=== PATIENT | female | born 1970 | race Caucasian/White ===

== ENCOUNTER 2017-03-28 10:25 | Emergency (ER) | payer MEDICARE, BC ==
--- NOTE | 2017-03-28 10:34 | EDM.PDOC ---
ED HPI GENERAL MEDICAL PROBLEM - General Chief Complaint: Respiratory Problem Stated Complaint: COLD,COUGH AND FEVER Time Seen by Provider: 03/28/17 10:33 Source of Information: Reports: Patient History Limitations: Reports: No Limitations - History of Present Illness INITIAL COMMENTS - FREE TEXT/NARRATIVE: HISTORY AND PHYSICAL: []46-year-old female presents with chest tightness coughing and shortness of breath History of Present Illness: []Patient has been ill for the last 2-3 days has not had her flu vaccine Coughing has been nonproductive denies fevers and chills Complaints of hearing a "crackling"at the end of a breath. Review of Systems: As per history of present illness and below otherwise all systems reviewed and negative. Past medical history: As per history of present illness and as reviewed below otherwise noncontributory. Surgical history: As per history of present illness and as reviewed below otherwise noncontributory. Social history: No reported history of drug or alcohol abuse. Family history: As per history of present illness and as reviewed below otherwise noncontributory. Physical exam: Alert and oriented female answering questions appropriately speaking in full sentences without any shortness of breath. HEENT: Atraumatic, normocehpalic, pupils reactive, negative for conjunctival pallor or scleral icterus, mucous membranes moist, throat clear, neck supple, nontender, trachea midline. Lungs: Clear to auscultation, breath sounds equal bilaterally, chest non tender. Heart: S1S2, regular, negative for clicks, rubs, or JVD. Abdomen: Soft, nondistended, nontender. Negative for masses or hepatossplenmegaly. Negative for costovertebral tenderness. Pelvis: Stable nontender. Genitourinary: Deferred. Rectal: Deferred Extremities: Atraumatic, negative for cords or calf pain. Neurovascular unremarkable. Neuro: Awake, alert, oriented. Cranial nerves II through XII unremarkable. Cerebellum unremarkable. Motor and sensory unremarkable throughout. Exam nonfocal. Have discussed the negative results on the influenza and chest x-ray with the client and her Have recommended prednisone and Tessalon Perles to improve her cough and inflammation to the bronchials. She did verbalize understanding of the test results and recommendations. Diagnostics: [cbc, cmp influenza, CXR] Therapeutics: [] Impression: [Bronchiolitis] Plan: [Discharged to home Prednisone Tessalon Perles Follow-up with your primary care next week Return to emergency room over the weekend if your symptoms worsen ] Definitive disposition and diagnosis as appropriate pending reevaluation and review of above. Onset: Gradual Duration: Day(s): (3), Getting Worse Location: Reports: Chest Quality: Reports: Ache Severity: Moderate Improves with: Reports: None Worsens with: Reports: None Associated Symptoms: Reports: Cough chest Pain Score (Numeric/FACES): 4 - Related Data Allergies Allergy/AdvReac Type Severity Reaction Status Date / Time clindamycin [From Cleocin] Allergy Hives Verified 03/28/17 10:35 Penicillins Allergy Hives Verified 03/28/17 10:35 Home Meds: Home Meds ALPRAZolam [Alprazolam] 1 tab PO TID PRN 03/28/17 [History] Benzonatate [Tessalon Perle] 100 mg PO QID PRN #40 capsule 03/28/17 [Rx] Prednisone [IMW: predniSONE] 20 mg PO WITHBREAKFAST #5 tab 03/28/17 [Rx] Sertraline [Zoloft] 50 mg PO DAILY 03/28/17 [History] Zolpidem [Ambien] 10 mg PO DAILY PRN 03/28/17 [History] ED ROS GENERAL - Review of Systems Review Of Systems: ROS reveals no pertinent complaints other than HPI. ED EXAM, GENERAL - Physical Exam Exam: See Below (see dictation) Course - Vital Signs Last Recorded V/S: Last Vital Signs Temp 36.4 C 03/28/17 10:32 Pulse 78 03/28/17 10:32 Resp 20 03/28/17 10:32 BP 129/68 03/28/17 10:32 Pulse Ox 95 03/28/17 10:32 - Orders/Labs/Meds Orders: Active Orders 24 hr Category Date Time Status Chest 2V [CR] Stat Exams 03/28/17 10:37 Taken UA W/MICROSCOPIC [URIN] Stat Lab 03/28/17 10:37 Uncollected Sodium Chloride 0.9% [Saline Flush] Med 03/28/17 10:37 Active 10 ml FLUSH ASDIRECTED PRN Sodium Chloride 0.9% [Saline Flush] Med 03/28/17 10:37 Active 2.5 ml FLUSH ASDIRECTED PRN Saline Lock Insert [OM.PC] Stat [facility] 03/28/17 10:37 Ordered Medication Orders Sodium Chloride (Saline Flush) 10 ml FLUSH ASDIRECTED PRN PRN Reason: Keep Vein Open Sodium Chloride (Saline Flush) 2.5 ml FLUSH ASDIRECTED PRN PRN Reason: Keep Vein Open Labs: Laboratory Tests 03/28/17 03/28/17 Range/Units 10:47 10:47 WBC 5.51 (4.0-11.0) K/uL RBC 4.53 (4.30-5.90) M/uL Hgb 12.3 (12.0-16.0) g/dL Hct 36.9 (36.0-46.0) % MCV 81.5 (80.0-98.0) fL MCH 27.2 (27.0-32.0) pg MCHC 33.3 (31.0-37.0) g/dL RDW Std Deviation 45.6 (28.0-62.0) fl RDW Coeff of Ruben 16 H (11.0-15.0) % Plt Count 317 (150-400) K/uL MPV 9.60 (7.40-12.00) fL Neut % (Auto) 63.6 (48.0-80.0) % Lymph % (Auto) 21.6 (16.0-40.0) % [place] % (Auto) 13.4 (0.0-15.0) % Eos % (Auto) 0.9 (0.0-7.0) % Baso % (Auto) 0.5 (0.0-1.5) % Neut # (Auto) 3.5 (1.4-5.7) K/uL Lymph # (Auto) 1.2 (0.6-2.4) K/uL [place] # (Auto) 0.7 (0.0-0.8) K/uL Eos # (Auto) 0.1 (0.0-0.7) K/uL Baso # (Auto) 0.0 (0.0-0.1) K/uL Nucleated RBC % 0.0 /100WBC Nucleated RBCs # 0 K/uL Sodium 138 (136-146) mmol/L Potassium 4.0 (3.5-5.1) mmol/L Chloride 109 (98-110) mmol/L Carbon Dioxide 19 L (21-31) mmol/L BUN 5 L (6.0-23.0) mg/dL Creatinine 0.6 (0.6-1.5) mg/dL Est Cr Clr Drug Dosing 87.47 mL/min Estimated GFR (MDRD) > 60.0 ml/min Glucose 88 (60-110) mg/dL Calcium 9.3 (8.8-10.8) mg/dL Total Bilirubin 0.3 (0.1-1.5) mg/dL AST 18 (5-40) IU/L ALT 20 (8-54) IU/L Alkaline Phosphatase 75 (40-150) Total Protein 7.5 (6.0-8.0) g/dL Albumin 4.2 (3.5-5.0) g/dL Globulin 3.3 (2.0-3.5) g/dL Albumin/Globulin Ratio 1.3 (1.3-2.8) Meds: Medications Generic Name Dose Route Start Last Admin Trade Name Freq PRN Reason Stop Dose Admin Sodium Chloride 10 ml 03/28/17 10:37 Saline Flush FLUSH ASDIRECTED PRN Keep Vein Open Sodium Chloride 2.5 ml 03/28/17 10:37 Saline Flush FLUSH ASDIRECTED PRN Keep Vein Open Departure - Departure Time of Disposition: 11:33 Disposition: Home, Self-Care 01 Condition: Good Clinical Impression: Bronchitis - Discharge Information Prescriptions: Benzonatate [Tessalon Perle] 100 mg PO QID PRN #40 capsule PRN Reason: Cough Prednisone [IMW: predniSONE] 20 mg PO WITHBREAKFAST #5 tab Instructions: Shortness of Breath, [id number], Acute Bronchitis, [id number] Referrals: PCP,None [Primary Care Provider] - Forms: ED Department Discharge Additional Instructions: The following information is given to patients seen in the emergency department who are being discharged to home. This information is to outline your options for follow-up care. We provide all patients seen in our emergency department with a follow-up referral. The need for follow-up, as well as the timing and circumstances, are variable depending upon the specifics of your emergency department visit. If you don't have a primary care physician on staff, we will provide you with a referral. We always advise you to contact your personal physician following an emergency department visit to inform them of the circumstance of the visit and for follow-up with them and/or the need for any referrals to a consulting specialist. The emergency department will also refer you to a specialist when appropriate. This referral assures that you have the opportunity for followup care with a specialist. All of these measure are taken in an effort to provide you with optimal care, which includes your followup. Under all circumstances we always encourage you to contact your private physician who remains a resource for coordinating your care. When calling for followup care, please make the office aware that this follow-up is from your recent emergency room visit. If for any reason you are refused follow-up, please contact the [facility] emergency department at and asked to speak to the emergency department charge nurse. You've been found to have a bronchitis, which causes inflammation to the bronchioles and makes it more difficult to breathe Prednisone will help to reduce the edema and improve your wheezing Tessalon Perles will help with her cough Any worsening of symptoms please return for reevaluation Follow-up with your primary care provider in 3 days - My Orders Last 24 Hours: My Active Orders 03/28/17 10:37 Chest 2V [CR] Stat UA W/MICROSCOPIC [URIN] Stat Sodium Chloride 0.9% [Saline Flush] 10 ml FLUSH ASDIRECTED PRN Sodium Chloride 0.9% [Saline Flush] 2.5 ml FLUSH ASDIRECTED PRN Saline Lock Insert [OM.PC] Stat - Assessment/Plan Last 24 Hours: My Active Orders 03/28/17 10:37 Chest 2V [CR] Stat UA W/MICROSCOPIC [URIN] Stat Sodium Chloride 0.9% [Saline Flush] 10 ml FLUSH ASDIRECTED PRN Sodium Chloride 0.9% [Saline Flush] 2.5 ml FLUSH ASDIRECTED PRN Saline Lock Insert [OM.PC] Stat
[2017-03-28] MEDS ORDERED: Sodium Chloride 0.9% 10 ML Syringe FLUSH PRN (10:37)
[2017-03-28] MEDS ORDERED: Sodium Chloride 0.9% 2.5 ML Syringe FLUSH PRN (10:37)
[2017-03-28 11:28] LABS: CHLORIDE,CL 109 mmol/L (98-110); SODIUM,NA 138 mmol/L (136-146)
--- NOTE | 2017-03-30 17:36 | CR ---
EXAM DATE: 03/28/17 PATIENT'S AGE: 46 Patient: CHASE VASQUEZ Facility: [place], [place] Site . Site : 1970 Study: XRay Chest [id number]/20/2018 11:19:07 AM Ordering Physician: Doctor Solomon Final Report: CHEST 2 VIEWS INDICATION: Chest pain. IMPRESSION: Normal heart size and vascular pattern. Lungs are clear. No pneumothorax or pleural abnormality. Dictated by Nishant Mccord MD @ Mar 28 2017 11:23AM (Electronic Signature) Report Signed by Proxy. [facility] CHAFFEE HOSPITALJonh
== END 2017-03-28 11:55 | disposition home or self-care (01) ==
LOC: MW.ED 10:25
DX: J21.9 Acute bronchiolitis, unspecified (principal); J40 Bronchitis, not specified as acute or chronic; Z88.1 Allergy status to other antibiotic agents; Z88.0 Allergy status to penicillin; Z79.899 Other long term (current) drug therapy
CPT/HCPCS: 36415; 71046; 71046-26; 80053; 85025; 87804; 99283

== ENCOUNTER 2017-04-12 04:27 | Emergency (ER) | payer MEDICARE, BC ==
[2017-04-12] MEDS ORDERED: Albuterol/Ipratropium 3.0-0.5 MG/3 ML Neb Soln NEB ONE (04:43)
--- NOTE | 2017-04-12 04:45 | EDM.PDOC ---
ED HPI GENERAL MEDICAL PROBLEM - General Chief Complaint: Respiratory Problem Stated Complaint: FEVER Time Seen by Provider: 04/12/17 04:44 Source of Information: Reports: Patient - History of Present Illness INITIAL COMMENTS - FREE TEXT/NARRATIVE: HISTORY AND PHYSICAL: History of present illness: Patient is in for persistent cough over the last 3 weeks she did have a chest x- ray on the and was provided Tessalon Perles they induced panic and she did not take the she is having difficulty sleeping due to cough No fever nausea vomiting chills sweats no chest pain shortness breath headache dizziness palpitation no bowel or urine symptoms ] History of anxiety Review of systems: As per history of present illness and below otherwise all systems reviewed and negative. Past medical history: As per history of present illness and as reviewed below otherwise noncontributory. Surgical history: As per history of present illness and as reviewed below otherwise noncontributory. Social history: No reported history of drug or alcohol abuse. Family history: As per history of present illness and as reviewed below otherwise noncontributory. Physical exam: HEENT: Atraumatic, normocephalic, pupils reactive, negative for conjunctival pallor or scleral icterus, mucous membranes moist, throat clear, neck supple, nontender, trachea midline. Lungs: Clear to auscultation, breath sounds equal bilaterally, chest nontender. Heart: S1S2, regular, negative for clicks, rubs, or JVD. Abdomen: Soft, nondistended, nontender. Negative for masses or hepatosplenomegaly. Negative for costovertebral tenderness. Pelvis: Stable nontender. Genitourinary: Deferred. Rectal: Deferred. Extremities: Atraumatic, negative for cords or calf pain. Neurovascular unremarkable. Neuro: Awake, alert, oriented. Cranial nerves II through XII unremarkable. Cerebellum unremarkable. Motor and sensory unremarkable throughout. Exam nonfocal. Diagnostics: [Chest 2 views Patient refused influenza test/repeat ] Therapeutics: [DuoNeb Patient previously prescribed prednisone this causes anxiety hence did not take this Z-Charlie 250 mg no refill Phenergan with codeine to 40 mL no refill ] Impression: [Bronchitis] Definitive disposition and diagnosis as appropriate pending reevaluation and review of above. 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: Psychiatric History: Reports: Anxiety, Depression, PTSD - Infectious Disease History Infectious Disease History: Reports: Chicken Pox - Past Surgical History HEENT Surgical History: Reports: Adenoidectomy, Tonsillectomy GI Surgical History: Reports: Bariatric Procedure, Cholecystectomy Female Surgical History: Reports: Section, Tubal Ligation, Other ( See Below) Other Female Surgeries/Procedures: endometrial ablation Social & Family History - Family History Family Medical History: Noncontributory - Tobacco Use Smoking Status *Q: Never Smoker Second Hand Smoke Exposure: No - Caffeine Use Caffeine Use: Reports: Coffee - Recreational Drug Use Recreational Drug Use: No ED ROS GENERAL - Review of Systems Review Of Systems: ROS reveals no pertinent complaints other than HPI. ED EXAM, GENERAL - Physical Exam Exam: See Below Course - Vital Signs Last Recorded V/S: Last Vital Signs Temp 98.5 F 04/12/17 04:33 Pulse 114 H 04/12/17 04:33 Resp 19 04/12/17 04:33 BP 131/84 04/12/17 04:33 Pulse Ox 95 04/12/17 04:33 - Orders/Labs/Meds Orders: Active Orders 24 hr Category Date Time Status RT Aerosol Therapy [RC] ASDIRECTED Care 04/12/17 04:43 Active Chest 2V [CR] Stat Exams 04/12/17 04:43 Ordered Meds: Medications Discontinued Medications Generic Name Dose Route Start Last Admin Trade Name Freq PRN Reason Stop Dose Admin Albuterol/Ipratropium 3 ml 04/12/17 04:43 04/12/17 05:01 Duoneb 3.0-0.5 Mg/3 Ml NEB 04/12/17 04:44 3 ml ONETIME ONE Administration Departure - Departure Time of Disposition: 05:02 Disposition: Home, Self-Care 01 Condition: Good Clinical Impression: Bronchitis - Discharge Information Referrals: PCP,None [Primary Care Provider] - Forms: ED Department Discharge Additional Instructions: The following information is given to patients seen in the emergency department who are being discharged to home. This information is to outline your options for follow-up care. We provide all patients seen in our emergency department with a follow-up referral. The need for follow-up, as well as the timing and circumstances, are variable depending upon the specifics of your emergency department visit. If you don't have a primary care physician on staff, we will provide you with a referral. We always advise you to contact your personal physician following an emergency department visit to inform them of the circumstance of the visit and for follow-up with them and/or the need for any referrals to a consulting specialist. The emergency department will also refer you to a specialist when appropriate. This referral assures that you have the opportunity for follow-up care with a specialist. All of these measure are taken in an effort to provide you with optimal care, which includes your follow-up. Under all circumstances we always encourage you to contact your private physician who remains a resource for coordinating your care. When calling for follow-up care, please make the office aware that this follow-up is from your recent emergency room visit. If for any reason you are refused follow-up, please contact the [facility] emergency department at and asked to speak to the emergency department charge nurse. - My Orders Last 24 Hours: My Active Orders 04/12/17 04:43 RT Aerosol Therapy [RC] ASDIRECTED Chest 2V [CR] Stat - Assessment/Plan Last 24 Hours: My Active Orders 04/12/17 04:43 RT Aerosol Therapy [RC] ASDIRECTED Chest 2V [CR] Stat
[2017-04-12] MEDS ORDERED: LORazepam 1 MG Tab PO ONE ×2 (05:34→05:36)
--- NOTE | 2017-04-13 15:57 | CR ---
EXAM DATE: 04/12/17 PATIENT'S AGE: 46 Patient: CHASE VASQUEZ Facility: [place], [place] Site . Site : 1970 Study: XRay Chest [id number]/4/2018 5:12:17 AM Ordering Physician: Doctor Solomon Final Report: INDICATION: Shortness of breath, chest pain TECHNIQUE: Chest 2 views. COMPARISON: March 28, 2017 FINDINGS: Cardiovascular and mediastinum: Heart size and vasculature are normal in caliber and appearance. Mediastinum is within normal limits. Lungs and pleural spaces: Lungs are clear. No sign of infiltrate or mass. No sign of pleural effusion. No pneumothorax. Bones and soft tissues: No significant findings. IMPRESSION: No sign of acute disease. Dictated by Lo Cline MD @ Apr 12 2017 5:52AM (Electronic Signature) Report Signed by Proxy. EMETERIO
== END 2017-04-12 05:50 | disposition home or self-care (01) ==
LOC: MW.ED 04:27
DX: J40 Bronchitis, not specified as acute or chronic (principal); Z88.0 Allergy status to penicillin; Z88.1 Allergy status to other antibiotic agents; Z79.899 Other long term (current) drug therapy
CPT/HCPCS: 71046; 94640; 99284; A9270; 99282

== ENCOUNTER 2017-04-18 01:05 | Emergency (ER) | payer MEDICARE, BC ==
[2017-04-18] MEDS ORDERED: LORazepam 1 MG Tab PO ONE (01:41)
--- NOTE | 2017-04-18 01:41 | EDM.PDOC ---
ED HPI GENERAL MEDICAL PROBLEM - General Chief Complaint: Respiratory Problem Stated Complaint: SHORTNESS OF BREATH,BRONCHITIS Time Seen by Provider: 04/18/17 01:23 - History of Present Illness INITIAL COMMENTS - FREE TEXT/NARRATIVE: HISTORY AND PHYSICAL: History of present illness: The patient is a 47-year-old female with no stated history of pulmonary disease and no smoking history who has been in the emergency department for cough and bronchitic symptoms on March 28 and April 12 of this year. On her first visit she had labs and a chest x-ray performed as well as influenza testing which was negative and she was placed on prednisone which she states gave her severe anxiety and Tessalon Perles which also caused her to feel very anxious. Patient was then seen a second time on April 12 and had a repeat chest x-ray which was again read as normal and she was placed on Phenergan with codeine and a Z-Charlie which she states both of which improved her symptoms. The patient received a DuoNeb on the second ER visit and had extreme tremors with the treatment and this also triggered her anxiety so she was not given an inhaler. Patient does not want to take prednisone or use an inhaler for this bronchitis as well for these seem to trigger severe side effects. The patient says that the cough medicine was working and she did not follow-up in the clinic because they're planning on moving on Thursday, 2 days from now. She is alert he connected with a provider at her new city where she will be living and has a follow-up appointment there. She is here tonight because she is having spastic coughing and feels very stressed and anxious by that and would like more cough medicine. The patient has not had fevers but does have sinus congestion and fullness more on the left side with some drainage. She has been using a humidifier. She's been eating and drinking normally without any abdominal pain vomiting or diarrhea. Patient states she normally takes medications for anxiety and she has run out but is not requesting a refill. She said that she will address that with her new provider. Review of systems: As per history of present illness and below otherwise all systems reviewed and negative. Past medical history: As per history of present illness and as reviewed below otherwise noncontributory. Surgical history: As per history of present illness and as reviewed below otherwise noncontributory. Social history: No reported history of drug or alcohol abuse. Family history: As per history of present illness and as reviewed below otherwise noncontributory. Physical exam: Gen.: Well-developed well-nourished female who is nasal quality to voice and intermittently will have a spastic dry cough system with bronchitis. Vital signs have been reviewed by me. She is slightly anxious in the room but can easily be redirected. HEENT: Atraumatic, normocephalic, negative for conjunctival pallor or scleral icterus, mucous membranes moist, throat clear, neck supple, nontender, trachea midline. The patient has boggy turbinates bilaterally left greater than right and does have some maxillary sinus tenderness on the left. She has no cervical adenopathy or nuchal rigidity Lungs: Clear to auscultation with an occasional fine expiratory wheeze and rhonchi right greater than left but no work of breathing or stridor, breath sounds equal bilaterally, chest nontender. Heart: S1S2, regular in rhythm no overt murmurs Abdomen: Soft, nondistended, nontender. NABS Pelvis: Deferred Genitourinary: Deferred. Rectal: Deferred. Extremities: Atraumatic, negative for cords or calf pain. Neurovascular unremarkable. Neuro: Awake, alert, oriented. Cranial nerves II through XII unremarkable. Cerebellum unremarkable. Motor and sensory unremarkable throughout. Exam nonfocal. Diagnostics: None--- the patient deferred any repeat testing Therapeutics: Ativan 1 mg by mouth for her anxiety in the ED The patient states that she does not want an albuterol inhalers with spacer was not given and she does not even want a shot of steroids as this will make her very anxious. I discussed with the patient and at length that the treatment that would be best suited for her symptoms would be inhaler and steroids but as she gets incredibly anxious but that the patient is refusing to use that therapy. She clearly does have a clinical sinusitis which I can treat with antibiotics and I will give her Levaquin via [facility]. She does not want more testing as she has had a full workup over the last 2 weeks and she has follow-up scheduled. I will give her more cough medicine as this seems to help her to get through the day. I did stress to her the need to keep her appointment with her new provider as due to the chronicity of these symptoms she will likely need more testing and evaluation for why this is persisting. She states understanding Impression: Sinusitis, persistent bronchitis and bronchitic cough Definitive disposition and diagnosis as appropriate pending reevaluation and review of above. - Related Data Allergies Allergy/AdvReac Type Severity Reaction Status Date / Time benzonatate Allergy Other Verified 04/18/17 01:17 [From Tessalon Perles] clindamycin [From Cleocin] Allergy Hives Verified 04/18/17 01:17 Penicillins Allergy Hives Verified 04/18/17 01:17 Home Meds: Home Meds Sertraline [Zoloft] 50 mg PO DAILY 03/28/17 [History] Past Medical History - Past Health History Medical/Surgical History: Denies Medical/Surgical History HEENT History: Reports: None Gastrointestinal History: Reports: None Genitourinary History: Reports: None [employer] MANAGER History: Reports: Psychiatric History: Reports: Anxiety, Depression, PTSD - Infectious Disease History Infectious Disease History: Reports: Chicken Pox - Past Surgical History HEENT Surgical History: Reports: Adenoidectomy, Tonsillectomy GI Surgical History: Reports: Bariatric Procedure, Cholecystectomy Female Surgical History: Reports: Section, Tubal Ligation, Other ( See Below) Other Female Surgeries/Procedures: endometrial ablation Social & Family History - Family History Family Medical History: Noncontributory - Tobacco Use Smoking Status *Q: Never Smoker Second Hand Smoke Exposure: No - Caffeine Use Caffeine Use: Reports: Coffee - Recreational Drug Use Recreational Drug Use: No ED ROS GENERAL - Review of Systems Review Of Systems: ROS reveals no pertinent complaints other than HPI. ED EXAM, GENERAL - Physical Exam Exam: See Below (See dictation) Course - Vital Signs Last Recorded V/S: Last Vital Signs Temp 37.0 C 04/18/17 01:13 Pulse 107 H 04/18/17 01:13 Resp 20 04/18/17 01:13 BP 122/68 04/18/17 01:13 Pulse Ox 94 L 04/18/17 01:13 - Orders/Labs/Meds Meds: Medications Discontinued Medications Generic Name Dose Route Start Last Admin Trade Name Freq PRN Reason Stop Dose Admin Lorazepam 1 mg 04/18/17 01:41 Ativan PO 04/18/17 01:42 ONETIME ONE Departure - Departure Time of Disposition: 01:51 Disposition: Home, Self-Care 01 Condition: Good Clinical Impression: Bronchitis Sinusitis Qualifiers: Sinusitis location: unspecified location Chronicity: acute Recurrence: not specified as recurrent Qualified Code(s): J01.90 - Acute sinusitis, unspecified - Discharge Information Referrals: Jamee Tobias NP [Primary Care Provider] - Forms: ED Department Discharge Additional Instructions: The following information is given to patients seen in the emergency department who are being discharged to home. This information is to outline your options for follow-up care. We provide all patients seen in our emergency department with a follow-up referral. The need for follow-up, as well as the timing and circumstances, are variable depending upon the specifics of your emergency department visit. If you don't have a primary care physician on staff, we will provide you with a referral. We always advise you to contact your personal physician following an emergency department visit to inform them of the circumstance of the visit and for follow-up with them and/or the need for any referrals to a consulting specialist. The emergency department will also refer you to a specialist when appropriate. This referral assures that you have the opportunity for followup care with a specialist. All of these measure are taken in an effort to provide you with optimal care, which includes your followup. Under all circumstances we always encourage you to contact your private physician who remains a resource for coordinating your care. When calling for followup care, please make the office aware that this follow-up is from your recent emergency room visit. If for any reason you are refused follow-up, please contact the [facility] emergency department at and ask to speak to the emergency department charge nurse. [facility] Primary care- Internal Medicine and Family [address] [id number] Please call and schedule a follow-up appointment here in our clinics if you are staying in the region or keep your appointment with her new provider as you discuss with me. Push hydration and avoid caffeinated products and use coolmist humidifier at sleep times. Please use medications as prescribed from [facility] , Phenergan with codeine and Levaquin. Return to ER as needed and as discussed.
== END 2017-04-18 02:00 | disposition home or self-care (01) ==
LOC: MW.ED 01:05
DX: J40 Bronchitis, not specified as acute or chronic (principal); J01.90 Acute sinusitis, unspecified; F41.9 Anxiety disorder, unspecified; F32.9 Major depressive disorder, single episode, unspecified; Z88.0 Allergy status to penicillin; Z88.1 Allergy status to other antibiotic agents; Z88.8 Allergy status to other drugs, medicaments and biological substances; Z79.899 Other long term (current) drug therapy; Z98.890 Other specified postprocedural states
CPT/HCPCS: 99283; A9270